=== PATIENT | female | born 1985 | race Caucasian/White ===

== ENCOUNTER 2021-02-18 08:55 | Emergency (ER) | payer OTHER ==
[~2021-02-18] VITALS: Ht 157.5 cm; Wt 93.0 kg
[2021-02-18 08:59] VITALS: BP 123/78
[2021-02-18 12:03] VITALS: BP 126/74
== END 2021-02-18 12:30 | disposition home or self-care (01) ==
LOC: MED 08:55
DX: N93.9 Abnormal uterine and vaginal bleeding, unspecified (principal)
CPT/HCPCS: 36415; 81002; 81025; 84702; 86900; 86901; 87210; 87491; 99283